=== PATIENT | female | born 1980 | race Caucasian/White ===

== ENCOUNTER 2019-12-20 14:13 | Emergency (ER) | payer MEDICARE, MEDICAID ==
[~2019-12-20] VITALS: Ht 167.6 cm; Wt 72.7 kg
[2019-12-20 14:14] VITALS: Ht 167.6 cm; Wt 72.7 kg
[2019-12-20] MEDS ORDERED: KEPPRA500 MG (14:18)
[2019-12-20 14:45] LABS: BASOPHILS 0.2 % (0-2); EOSINOPHILS 0.4 % (0-7); HEMATOCRIT 41.4 % (36.0-48.0); HEMOGLOBIN 14.2 g/dL (12-16); IMMATURE GRANULOCYTES 0.5 % (0-5); LYMPHOCYTES 11.3 % (15-50); MCH 32.7 pg (26.0-34.0); MCHC 34.3 g/dL (31.0-37.0); MCV 95.4 fL (80.0-100.0); MEAN PLATELET VOLUME 10.5 fL (7.4-10.4); MONOCYTES 5.5 % (2-11); NEUTROPHILS 82.1 % (40-80); PLATELET COUNT 229 10x3/uL (130-400); RBC 4.34 10x6/uL (4.00-5.40); RDW 12.9 % (11.5-14.5); WBC 14.3 10x3/uL (4.8-10.8)
[2019-12-20 15:09] LABS: ALBUMIN 3.5 g/dL (3.4-5.0); ALKALINE PHOSPHATASE 99 U/L (30-120); ALT (SGPT) 25 U/L (10-68); BILIRUBIN - TOTAL 0.24 mg/dL (0.2-1.3); CALC OSMOLALITY 270 mosm/kg (275-300); CALCIUM 8.8 mg/dL (8.5-10.1); CARBON DIOXIDE 28.2 mmol/L (21.0-32.0); CHLORIDE - SERUM 98 mmol/L (98-107); CREATINE KINASE 46 UL (21-215); CREATININE - SERUM 0.8 mg/dL (0.6-1.3); GLUCOSE 131 mg/dL (74-106); MAGNESIUM - SERUM 1.6 mg/dL (1.8-2.4); PRO BNP 70 pg/mL (0-125); PROTEIN - SERUM 6.7 g/dL (6.4-8.2); SODIUM 135 mmol/L (136-145); THYROID STIMULATING HORMONE 0.17 uIU/mL (0.36-3.74); UREA NITROGEN 10 mg/dL (7-18); eGFR NON AFRICAN AMERICAN 85 mL/min (90-120)
[2019-12-20 15:19] LABS: LIPASE 45 U/L (73-393)
[2019-12-20 15:20] LABS: POTASSIUM - SERUM 2.7 mmol/L (3.5-5.1)
[2019-12-20 16:07] LABS: BILIRUBIN NEGATIVE (NEGATIVE); KETONE NEGATIVE (NEGATIVE); NITRITE NEGATIVE (NEGATIVE); UROBILINOGEN NORMAL mg/dL (< 2)
[2019-12-20 16:08] LABS: WHITE CELLS - URINE 0-5 HPF (0-4)
[2019-12-20 16:09] LABS: BACTERIA FEW HPF (NONE SEEN); EPITHELIAL CELLS OCC /hpf (0-5)
[2019-12-20 16:12] LABS: UDS - AMPHET NEGATIVE QUAL (NEGATIVE); UDS - BARB NEGATIVE QUAL (NEGATIVE); UDS - BENZO NEGATIVE QUAL (NEGATIVE); UDS - COCAINE POSITIVE QUAL (NEGATIVE); UDS - OPIATE NEGATIVE QUAL (NEGATIVE); UDS - PCP NEGATIVE QUAL (NEGATIVE); UDS - THC POSITIVE QUAL (NEGATIVE)
[2019-12-20 16:37] LABS: HCG URINE NEGATIVE (NEGATIVE)
[2019-12-20] MEDS ORDERED: KEPPRA500 MG PO (17:55)
[2019-12-20 18:14] VITALS: BP 103/61
== END 2019-12-20 18:14 | disposition home or self-care (01) ==
LOC: D.ER 14:13
PROVIDERS: Family Medicine
DX: R41.82 Altered mental status, unspecified (principal); E87.6 Hypokalemia; F19.10 Other psychoactive substance abuse, uncomplicated; G40.909 Epilepsy, unspecified, not intractable, without status epilepticus